=== PATIENT | male | born 1965 | race Caucasian/White ===

== ENCOUNTER → 2019-01-09 11:06 | Outpatient (CLI) | payer MEDICAID, OTHER | END | disposition home or self-care (01) | LOC: D.NM 11:06 | PROVIDERS: ATTEND Internal Medicine Gastroenterology | DX: R10.9 Unspecified abdominal pain (principal); R11.0 Nausea; R11.10 Vomiting, unspecified ==

== ENCOUNTER 2019-05-08 01:51 | Inpatient (IN) | payer MEDICAID, OTHER ==
[~2019-05-08] VITALS: Ht 175.3 cm; Wt 83.9 kg
[2019-05-08] VITALS (9 sets, daily range): BP systolic 113–147; BP diastolic 81–102; Ht 175.3 cm; Wt 83.9 kg
--- NOTE | ~2019-05-08 | HEMODYNAMI ---
PATIENT:NISHI SANDOVAL MEDICAL RECORD: [id number] : 61 LOCATION:[facility] D.2115 [facility]# [id number] ADMISSION DATE: 05/08/19 Generatedon:05/09/201912:45 Patient name: NISHI SANDOVAL Patient #: [id number] : 1965 Date of study: 05/09/2019 Page: Of Hemodynamic Procedure Report Patient Data Patient Demographics Procedure consent was obtained First Name: NISHI Gender: Male Last Name: JAIME : 1965 Middle Initial: TAMAR Age: 53 year(s) Patient #: [id number] Race: Ethnicity: or SSN: [id number] Additional ID: [id number] Contact details [address]: [address] [place] [address] State: [place] City: [place] Zip code: [address] Past Medical History Allergies Allergen Reaction Date Comments Reported Other allergy 05/09/2019 KEN NELSON Admission Admission Data Admission Date: 05/08/2019 Admission Time: 3:24 Arrival Date: 05/08/2019 Arrival Time: 3:24 Admit Source: Emergency Insurance Payor: Private department health [facility], [facility] Room #: D.2115 [facility] #: [id number] Height (in.): 68.9 BSA: 2 (m2) Height (cm.): 175 BMI: 27.43 (kg/m2) Weight (lbs.): 185.19 Weight (kg.): 84 Lab Results Lab Result Date: 05/08/2019 Lab Result Time: 0:00 Biochemistry Name Units Result Min Max BUN mg/dl 13 --(--*-)-- 7 18 Creatinine mg/dl 1.2 --(---*)-- 0.6 1.3 eGFR ml/min 67.52320 *-(----)-- 90 120 NONAFRICAN CBC Name Units Result Min Max Hemoglobin g/dl 16.7 --(---*)-- 13.5 17.5 Procedure Procedure Types Cath Procedure Diagnostic Procedure FFR/IVUS FFR Initial Sedation Charges Moderate Sedation up to 30 minutes PCI Procedure Coronary Stent Coronary Stent Initial Procedure Description Procedure Date Procedure Date: 05/09/2019 Procedure Start Time: 12:06 Procedure End Time: 12:42 Procedure Staff Name Function Godfrey Vincent MD Performing Physician Ary Kelly RT Monitor Ester Oglesby RT Scrub Chance Herman RN Nurse Marielos Loza RT Monitor Procedure Data Cath Procedure Fluoroscopy Diagnostic fluoroscopy Total fluoroscopy Time: time: 11.7 min 11.7 min Diagnostic fluoroscopy Total fluoroscopy dose: dose: 1539 mGy 1539 mGy Contrast Material Contrast Material Type Amount (ml) Isovue 300 134 Entry Location Entry Primary Successful Side Size Upsize Upsize Entry Closure Succes sful Closure Location (Fr) 1 (Fr) 2 (Fr) Remarks Device Remarks Femoral Right 6 Fr Exoseal artery Short Estimated blood loss: 10 ml Procedure Complications No complications Procedure Medications Medication Administration Route Dosage Oxygen etCO2 Nasal cannula 2 l/min Lidocaine 2% added to field 20 Heparin Flush Bag added to field 2 bags (1000units/500ml NS) 0.9% NaCl I.V. 100 ml/hr Versed I.V. 1 mg Fentanyl I.V. 50 mcg Versed I.V. 1 mg Fentanyl I.V. 50 mcg Heparin Bolus I.V. 4000 units Versed I.V. 1 mg Hemodynamics Rest BSA: 2 (m2) HGB: 16.7 (g/dl) O2 Consumption: Estimated: 231.59 (ml/min) O2 Consu mption indexed: Estimated:115.8 (ml/min/m) Heart Rate: 63 (bpm) Snapshots Pre Cath Intra NCS Post Cath Vital Signs Time Heart Resp SPO2 etCO2 NIBP (mmHg) Rhythm Pain Sedation Rate (ipm) (%) (mmHg) Status Level (bpm) 11:56:48 62 13 97 34.8 114/82(95) NSR 0 (11) 10(A) , No pain 12:00:54 63 11 97 9.1 114/78(92) NSR 0 (11) 10(A) , No pain 12:04:58 62 10 97 0 111/88(100) NSR 0 (11) 10(A) , No pain 12:09:01 61 10 96 25 115/79(99) NSR 0 (11) 9(A) , No pain 12:13:05 58 10 93 20.4 114/86(107) NSR 0 (11) 9(A) , No pain 12:17:11 65 16 94 23.5 106/78(93) NSR 0 (11) 9(A) , No pain 12:21:19 59 21 98 20.4 109/66(85) NSR 0 (11) 9(A) , No pain 12:25:24 61 20 94 28.8 108/75(88) NSR 0 (11) 9(A) , No pain 12:29:26 63 12 98 32.6 106/73(94) NSR 0 (11) 10(A) , No pain 12:33:30 62 18 97 29.5 112/74(91) NSR 0 (11) 10(A) , No pain 12:37:31 66 22 97 34.1 94/58(70) NSR 0 (11) 10(A) , No pain 12:41:41 66 10 100 36.3 140/113(137) NSR 0 (11) 10(A) , No pain Medications Time Medication Route Dose Verified Delivered Reason Notes Effectiveness by by 12:00:25 Oxygen etCO2 2 Godfrey Buffie used for Nasal l/min Carlton Herman RN procedure cannula 12:00:32 Lidocaine 2% added 20ml Godfrey Godfrey for local to vial Carlton Vincent MD anesthetic field 12:00:38 Heparin Flush added 2 Godfrey Godfrey used for Bag to bags Carlton Vincent MD procedure (1000units/500ml field NS) 12:00:47 0.9% NaCl I.V. 100 Godfrey Buffie Per physician ml/hr Carlton Herman RN 12:04:10 Versed I.V. 1 mg Godfrey Buffie for sedation Carlton Herman RN 12:04:16 Fentanyl I.V. 50 Godfrey Buffie for sedation mcg Carlton Herman RN 12:08:10 Versed I.V. 1 mg Godfrey Buffie for sedation Carlton Herman RN 12:08:13 Fentanyl I.V. 50 Godfrey Buffie for sedation mcg Carlton Herman RN 12:10:49 Heparin Bolus I.V. 4000 Godfrey Buffie for verif ied units Carlton Herman RN anticoagulation with dr vincent 12:23:41 Versed I.V. 1 mg Godfrey Fletcher for sedation Carlton Herman registered clinical dietitian Log Time Note 11:31:10 Informed consent obtained and on chart 11::37 Patient Weight : 185.19 lbs 11::37 Patient Height : 68.9 inches 11:33:11 Procedure Status PCI. 11:33:13 Time tracking: Regular hours (M-F 7:00 - 5:00) 11:33:16 Plan of Care:Hemodynamics will remain stable., Cardiac rhythm will remain stable., Comfort level will be maintained., Respiratory function will remain adequate., Patient/ family verbilizes understanding of procedure., Procedure tolerated without complication., Recovers from procedure without complications.. 11:33:21 Chance Herman RN sent for patient. Start room use. 11:33:59 Patient allergic to Other allergyZOFRAN, REGLAN 11:36:39 Risk of Mortality: <.1 11:36:42 Risk of blood transfusion: .2 11:36:45 Risk of VERO: 3.1 11:41:08 ACC Patient presents with Stable Angina CCS Anginal Class 3--Marked limitation of physical activity, angina occurs with ordinary activity.. 11:41:39 Is patient on blood thinner?Yes 11:41:44 ACC The patient was administered the following blood thiners within the last 24 hours: ACCPlavix 11:48:54 Patient received from Med II to CCL 2 Alert and oriented. Tansferred to table in Supine position. 11:49:37 Warm blankets applied, and logan hugger turned on for patient comfort. 11:49:38 Correct patient and procedure confirmed by team. 11:49:38 ECG and BP/O2 sat monitors applied to patient. 11:52:53 Pre-procedure instructions explained to patient. 11:52:54 Pre-op teaching completed and patient verbalized understanding. 11:53:07 Family in patients room. 11:53:09 Patient NPO since Midnight. 11:53:57 Patient diabetic? No. 11:53:59 Is the patient allergic to Iodine/contrast media? No. 11:54:12 Previous problem with sedation/anesthesia? Yes vomitting in past 11:54:13 Snore? Yes 11:54:15 Sleep apnea? No 11:54:16 Deviated septum? No 11:54:17 Opens mouth fully? Yes 11:54:19 Sticks out tongue? Yes 11:54:21 Airway obstruction? No ? 11:54:23 Dentures? No ? 11:54:25 Pre procedure: right dorsailis pedis pulse 2+ Normal; easily identifiable; not easily obliterated 11:54:28 Patient pain scale 0/10 ?. 11:54:44 IV patent on arrival in left antecubital with 0.9% NaCl at [facility]. 11:54:49 Lab results completed and on chart. 11:54:53 Right groin area was prepped with chlora-prep and draped in sterile fashion 11:54:54 Alarms reviewed by R. N. 11:54:54 Sharps counted by scrub and verified by R.N. 11:54:57 Use device set CATH PACK 11:54:58 ACIST Syringe (37619) opened to sterile field. 11:54:58 ACIST Hand Control (27913) opened to sterile field. 11:54:59 ACIST Manifold (88972) opened to sterile field. 11:54:59 Medline Cath Pack ([id number]) opened to sterile field. 11:54:59 Bag Decanter (2002S) opened to sterile field. 11:55:00 EMERALD Guide Wire (502-018) opened to sterile field. 11:55:15 SHEATH 6FR [place] (MXX465) opened to sterile field. 11:55:15 CHOICE PT Extra Support 182cm wire ([id number]) opened to sterile field. 11:55:16 INFLATOR Merit BasixCompak (FU7031) opened to sterile field. 11:55:38 Vital chart was started 11:55:39 Baseline sample Acquired. 11:55:42 Full Disclosure recording started 11:55:51 Rhythm: sinus rhythm 11:55:57 H&P Date Dictated: 05/09/2019 New H&P dictated by physician.. 12:00:25 Oxygen 2 l/min etCO2 Nasal cannula was administered by Chance Herman RN; used for procedure; Verbal order read back and verified. 12:00:32 Lidocaine 2% 20ml vial added to field was administered by Godfrey Vincent MD; for local anesthetic; Verbal order read back and verified. 12:00:38 Heparin Flush Bag (1000units/500ml NS) 2 bags added to field was administered by Godfrey Vincent MD; used for procedure; Verbal order read back and verified. 12:00:47 0.9% NaCl 100 ml/hr I.V. was administered by Chance Herman RN; Per physician; Verbal order read back and verified. 12:03:26 Physician arrived 12:03:27 --------ALL STOP TIME OUT------ 12:03:28 Final Timeout: patient, procedure, and site verified with staff and physician. All members of the team are in agreement. 12:03:31 Right groin site verified by team. 12:03:38 Fire Safety Assessment: A--An alcohol-based skin anteseptic being used preoperatively., C--Open oxygen or nitrous oxide is being used., D--An ESU, laser, or fiber-optic light is being used. 12:03:48 Physical assessment completed. ASA score P 2 - A patient with mild systemic disease as per Godfrey Vincent MD. 12:03:55 2) 60-89 Mildly reduced kidney function, and other findings (as for stage 1) point to kidney disease. 12:04:01 Maximum allowable contrast dose (3.7 X eGFR X 0.75)186 ml. 12:04:08 Sedation plan: IV Moderate Sedation Medication:Versed, Fentanyl 12:04:10 Versed 1 mg I.V. was administered by Chance Herman RN; for sedation; Verbal order read back and verified. 12:04:16 Fentanyl 50 mcg I.V. was administered by Chance Herman RN; for sedation; Verbal order read back and verified. 12:06:37 Procedure started. 12:06:41 Local anesthetic to right femoral artery with Lidocaine 2% by Godfrey Vincent MD.INITIAL ACCESS ONLY 12:08:06 A 6 Fr Short sheath was inserted into the Right Femoral artery 12:08:10 Versed 1 mg I.V. was administered by Chance Herman RN; for sedation; Verbal order read back and verified. 12:08:10 GUIDE 6FR HS II catheter ([id number]) opened to sterile field. 12:08:13 Fentanyl 50 mcg I.V. was administered by Chance Herman RN; for sedation; Verbal order read back and verified. 12:08:26 6 Fr HS2 guide catheter was inserted over the wire 12:09:08 RCA angiography performed. 12:10:03 CHOICE PT Extra Support J 300cm guide wire ([id number]) opened to sterile field. 12:10:18 300 CHOICE PT wire advanced. 12:10:49 Heparin Bolus 4000 units I.V. was administered by Chance Herman RN; for anticoagulation; verified with dr vincent Verbal order read back and verified. 12:11:35 Pre PCI Site: [place] PDA has 95% stenosis. 12:11:40 Wire advanced across lesion. 12:12:57 The EMERGE OTW 1.5 x 20 balloon ([id number]) was advanced and then removed because of failure to cross lesion 12:13:08 Wire removed. 12:13:24 [place] Verrata Plus pressure wire (21187F) opened to sterile field. 12:13:31 FFR/IFR wire advanced. 12:15:23 Wire advanced across lesion. 12:17:53 PLB lesion measured at 0.93 with IFR 12:18:40 Wire removed. 12:19:02 FIELDER XT J 300cm guide wire ([id number]) opened to sterile field. 12:19:15 Wire advanced across lesion. 12:22:06 Inflate balloon Inflation number: 1 A EMERGE OTW 1.5 x 20 balloon ([id number]) was prepped and advanced across the R PDA , then inflated to 7 GURU for 0:00 (min:sec) . 12:22:18 Inflation number: 2 The EMERGE OTW 1.5 x 20 balloon ([id number]) was reinflated across the R PDA , to 17 GURU for 0:00 (min:sec) . 12:22:26 Inflation number: 3 The EMERGE OTW 1.5 x 20 balloon ([id number]) was reinflated across the R PDA , to 21 GURU for 0:00 (min:sec) . 12:23:16 Wire removed. 12:23:25 WHISPER 300cm guide wire ([id number]) opened to sterile field. 12:23:41 Versed 1 mg I.V. was administered by Chance Herman RN; for sedation; Verbal order read back and verified. 12:23:42 WHISPER 300 wire advanced. 12:23:45 Wire advanced across lesion. 12:24:06 Balloon removed over the wire. 12:26:49 Inflate balloon Inflation number: 4 A EMERGE OTW 2.0 x 15 balloon ([id number]) was prepped and advanced across the R PDA , then inflated to 13 GURU for 0:10 (min:sec) . 12:26:59 Inflation number: 5 The EMERGE OTW 2.0 x 15 balloon ([id number]) was reinflated across the R PDA , to 13 GURU for 0:00 (min:sec) . 12:27:39 Inflation number: 6 The EMERGE OTW 2.0 x 15 balloon ([id number]) was reinflated across the R PDA , to 15 GURU for 0:00 (min:sec) . 12:28:14 Balloon removed over the wire. 12:30:00 Place stent Inflation Number: 7 A CAL RX 2.0 x 22 stent ([id number]) was prepped and advanced across the R PDA . The stent was deployed at 13 GURU for 0:10 (min:sec) . 12:30:34 Stent catheter was removed intact over wire. 12:30:38 Wire removed. 12:30:49 Guide catheter removed. 12:30:56 ACT drawn and resulted at 236 seconds. (normal therapeutic range 180-240 seconds). 12:31:47 EXOSEAL 6Fr (EX600) opened to sterile field. 12:32:02 Sheath removed intact; hemostasis achieved with Exoseal to the Right Femoral artery. 12:32:05 Procedure ended.(Physican Out) 12:33:54 Contrast amount:Isovue 300 134ml. 12:34:00 Maximum allowable dose exceeded? No. 12:34:13 Fluoroscopy time 11.70 minutes. 12:34:20 Flurop Dose total: 1539 12:34:20 Fluoroscopy dose: 1539 mGy 12:34:30 Dose Area Product 43189 mGy/cm. 12:34:33 Sharps counted by scrub and verified by R.N. 12:34:40 Insertion/operative site no bleeding no hematoma. 12:34:46 Post-op/insertion site Right Femoral artery dressed using a 4 x 4 and Tegaderm. 12:34:52 Post right femoral artery:stable 12:34:56 Post Procedure Pulses reassessed and unchanged 12:35:18 Post-procedure physical assessment completed. ASA score P 2 - A patient with mild systemic disease as per Godfrey Vincent MD. 12:35:23 Post procedure rhythm: unchanged. 12:35:30 Estimated blood loss: 10 ml 12:35:33 Post procedure instruction explained to patient.Patient verbalizes understanding. 12:35:37 Patient needs reinforcement of post procedure teaching. 12:38:15 Procedure type changed to Cath procedure, Diagnostic procedure, FFR/IVUS, FFR Initial, Sedation Charges, Moderate Sedation up to 30 minutes, PCI procedure, Coronary Stent, Coronary Stent Initial 12:38:54 FEMSTOP Gold ([id number]) opened to sterile field. 12:39:00 Femstop placed over the right femoral artery at 100 mmHg. Hemostasis achieved. 12:39:09 Procedure and supply charges have been captured, reviewed, submitted and are correct. 12:41:42 Procedure Complication : No complications 12:41:45 Vital chart was stopped 12:41:48 [facility] Findings: MVD- PCI performed (see procedure note) 12:41:54 Operative report dictated upon procedure completion. 12:41:54 See physician's report for complete and final results. 12:41:57 Report given to Pre/Post Procedure Room. 12:42:03 Patient transfered to Pre/Post Procedure Room with Stretcher. 12:42:07 Procedure ended. 12:42:07 Full Disclosure recording stopped 12:42:28 ACC-PCI Only Patient was given prescriptions, or instructed by Godfrey Vincent MD to start/continue the following medications upon discharge: Plavix 12:42:35 End room use (Document Last) Intervention Summary Intervention Notes Time ActionType Lesion and Equipment Used Action# Pressure Duration Attributes 12:12:57 Discard EMERGE OTW 1.5 Balloon x 20 balloon ([id number]) 12:22:06 Inflate R PDA EMERGE OTW 1.5 1 7 00:00 balloon x 20 balloon ([id number]) 12:22:18 Reinflate R PDA EMERGE OTW 1.5 2 17 00:00 balloon x 20 balloon ([id number]) 12:22:26 Reinflate R PDA EMERGE OTW 1.5 3 21 00:00 balloon x 20 balloon ([id number]) 12:26:49 Inflate R PDA EMERGE OTW 2.0 4 13 00:10 balloon x 15 balloon ([id number]) 12:26:59 Reinflate R PDA EMERGE OTW 2.0 5 13 00:00 balloon x 15 balloon ([id number]) 12:27:39 Reinflate R PDA EMERGE OTW 2.0 6 15 00:00 balloon x 15 balloon ([id number]) 12:30:00 Place stent R PDA CAL RX 2.0 x 7 13 00:10 22 stent ([id number]) Device Usage Item Name Manufacture Quantity Catalog Number [facility] Minimal Lot# / Charge Number Stock Stock Serial# Code ACIST Syringe Acist 1 89348 935604 871083 751093 20 (71822) Medical Systems Inc ACIST Hand Acist 1 66119 816245 108830 776694 5 Control Medical (18784) Systems Inc ACIST Manifold Acist 1 13426 630486 725040 613227 5 (19086) Medical Systems Inc Medline Cath Medline 1 [id number] 150636 55969 934852 5 Pack ([id number]) Bag Decanter Microtek 1 235178 50579 521004 5 () Medical Inc. EMERALD Guide Cardinal 1 502-455 003303 673983 027342 5 Wire (502-455) Health SHEATH 6FR Terumo 1 YGH478 456057 020525 840310 40 [place] (FTI042) CHOICE PT [place] 1 [id number] 278407 674431 809612 5 Extra Support Scientific 182cm wire (4296961I0) INFLATOR Merit Merit 1 WD3865 686612 685296 091551 15 CSA Medical (PV9705) GUIDE 6FR HS Medtronic 1 [id number] 287766 68766 577797 1 II catheter (HW6KBTE) CHOICE PT [place] 1 [id number] 130178 763734 403170 5 Extra Support Scientific J 300cm guide wire ([id number]) EMERGE OTW 1.5 [place] 1 [id number] 101474 090514 529489 5 [id number] x 20 balloon Scientific ([id number]) [place] 1 59976U 162120 189841452 856176 5 Verrata Plus pressure wire (16421J) FIELDER XT J Carmen 1 [id number] 881578 174061 585791 5 300cm guide Vascular wire ([id number]) WHISPER 300cm Carmen 1 [id number] 892034 781969 810325 5 guide wire Vascular (8627384OU) EMERGE OTW 2.0 [place] 1 [id number] 204011 488797 625299 5 [id number] x 15 balloon Scientific ([id number]) CAL RX 2.0 x Medtronic 1 [id number] 863914 4832474 575291 5 [id number] 22 stent ([id number]) EXOSEAL 6Fr Cardinal 1 EX600 147380 380419 456369 10 (EX600) Health FEMSTOP Gold St Joey 1 D92209 617520 108672 687351 5 ([id number]) Signature Audit Hydro Stage Time Signature Unsigned Intra-Procedure 05/09/2019 Marielos 12:43:41 PM Dago TORRES(R) (CV) Intra-Procedure 05/09/2019 Chance Herman RN 12:44:58 PM Intra-Procedure 05/09/2019 Godfrey Vincent 12:45:28 PM Signatures Performing Physician : Signature : Godfrey Vincent MD Date : Time : Monitor : Ary Kelly Signature : RT Date : Time : Nurse : Chance Herman RN Signature : Date : Time : Monitor : Marielos Signature : Dago RT Date : Time : [id number] [place] [address]
--- NOTE | ~2019-05-08 | HEMODYNAMI ---
PATIENT:NISHI SANDOVAL MEDICAL RECORD: [id number] : 61 [facility]# [id number] ADMISSION DATE: 05/08/19 Generatedon:05/08/201913:00 Patient name: NISHI SANDOVAL Patient #: [id number] : 1965 Date of study: 05/08/2019 Page: Of Hemodynamic Procedure Report Patient Data Patient Demographics Procedure consent was obtained First Name: NISHI Gender: Male Last Name: JAIME : 1965 Middle Initial: TAMAR Age: 53 year(s) Patient #: [id number] Race: SSN: [id number] Additional ID: [id number] Contact details Address: [address] [place] [address] State: [place] City: [place] Zip code: [address] Admission Admission Data Admission Date: 05/08/2019 Admission Time: 3:24 Arrival Date: 05/08/2019 Arrival Time: 3:24 Admit Source: Emergency Insurance Payor: Private department health insurance, Room #: D.2115 [facility] #: [id number] Height (in.): 68.9 BSA: 2 (m2) Height (cm.): 175 BMI: 27.43 (kg/m2) Weight (lbs.): 185.19 Weight (kg.): 84 Lab Results Lab Result Date: 05/08/2019 Lab Result Time: 0:00 Biochemistry Name Units Result Min Max BUN mg/dl 13 --(--*-)-- 7 18 Creatinine mg/dl 1.2 --(---*)-- 0.6 1.3 eGFR ml/min 67.60424 *-(----)-- 90 120 NONAFRICAN CBC Name Units Result Min Max Hemoglobin g/dl 16.7 --(---*)-- 13.5 17.5 Procedure Procedure Types Cath Procedure Diagnostic Procedure LHC LHC w/Coronaries Sedation Charges Moderate Sedation up to 30 minutes PCI Procedure Coronary Stent Coronary Stent Initial x2 Procedure Description Procedure Date Procedure Date: 05/08/2019 Procedure Start Time: 12:30 Procedure End Time: 12:55 Procedure Staff Name Function Godfrey Vincent MD Performing Physician Lucy Dominguez RT Monitor Magnolia Arana RT Scrub Chance Herman RN Nurse Indication Angina Procedure Data Cath Procedure Fluoroscopy Diagnostic fluoroscopy Total fluoroscopy Time: time: 10.2 min 10.2 min Diagnostic fluoroscopy Total fluoroscopy dose: dose: 2123 mGy 2123 mGy Contrast Material Contrast Material Type Amount (ml) Isovue 300 186 Entry Location Entry Primary Successful Side Size Upsize Upsize Entry Closure Castaneda ccessful Closure Location (Fr) 1 (Fr) 2 (Fr) Remarks Device Remarks Radial Right 6 Fr Mechanical artery Short Compression Estimated blood loss: 5 ml Diagnostic catheters Device Type Used For End Catheter Placement DIAGNOSTIC [place] 110cm 5 Multi-vessel Fr catheter ([id number]) Angiography DIAGNOSTIC AR2 MOD 5 Fr Right Coronary catheter ([id number]) Angiography Procedure Complications No complications Procedure Medications Medication Administration Route Dosage Oxygen etCO2 Nasal cannula 2 l/min Lidocaine 2% added to field 20 Heparin Flush Bag added to field 2 bags (1000units/500ml NS) 0.9% NaCl I.V. 100 ml/hr Radial Cocktail I.A. 1 syringe (Verapamil 2mg/Nitro 400mcg/Heparin 1500units) Versed I.V. 1 mg Fentanyl I.V. 50 mcg Versed I.V. 1 mg Fentanyl I.V. 50 mcg Heparin Bolus I.V. 4000 units Versed I.V. 1 mg Versed I.V. 1 mg Hemodynamics Rest BSA: 2 (m2) HGB: 16.7 (g/dl) O2 Consumption: Estimated: 239.35 (ml/min) O2 Consu mption indexed: Estimated:119.68 (ml/min/m) Heart Rate: 73 (bpm) Pressure Samples Time Site Value (mmHg) Purpose Heart Use Rate(bpm) 12:32 LV 44/44,41 Snapshot 89 Snapshots Pre Cath Intra NCS Post Cath Vital Signs Time Heart Resp SPO2 etCO2 NIBP (mmHg) Rhythm Pain Sedation Rate (ipm) (%) (mmHg) Status Level (bpm) 12:09:45 68 11 93 0 133/98(113) NSR 0 (11) 10(A) , No pain 12:13:44 67 10 98 29.9 141/101(122) NSR 0 (11) 10(A) , No pain 12:17:46 64 12 93 0 134/102(123) NSR 0 (11) 10(A) , No pain 12:19:55 67 17 96 0 145/98(132) NSR 0 (11) 10(A) , No pain 12:23:57 77 15 93 0 149/115(129) NSR 0 (11) 10(A) , No pain 12:28:00 79 18 95 0 144/92(133) NSR 0 (11) 10(A) , No pain 12:32:02 63 17 93 0 138/95(118) NSR 0 (11) 9(A) , No pain 12:36:06 67 18 94 0 132/89(121) NSR 0 (11) 9(A) , No pain 12:40:10 67 14 96 0 134/83(113) NSR 0 (11) 9(A) , No pain 12:44:15 71 14 96 0 134/75(111) NSR 0 (11) 9(A) , No pain 12:48:21 67 17 96 0 116/76(95) NSR 0 (11) 9(A) , No pain 12:52:21 67 28 97 0 124/76(107) NSR 0 (11) 10(A) , No pain Medications Time Medication Route Dose Verified Delivered Reason Not es Effectiveness by by 12:19:27 Oxygen etCO2 2 l/min Godfrey Fletcher used for Nasal Carlton Herman RN procedure cannula 12:19:34 Lidocaine 2% added 20ml Godfrey Donahue for local to vial Carlton Vincent MD anesthetic field 12:19:40 Heparin Flush added 2 bags Godfrey Donahue used for Bag to Carlton Vincent MD procedure (1000units/500ml field NS) 12:19:51 0.9% NaCl I.V. 100 Godfrey Fletcher Per physician ml/hr Carlton Herman RN 12:28:20 Versed I.V. 1 mg Godfrey Fletcher for sedation Carlton Herman RN 12:28:27 Fentanyl I.V. 50 mcg Godfrey Fletcher for sedation Carlton Herman RN 12:32:15 Versed I.V. 1 mg Godfrey Fletcher for sedation Carlton Herman RN 12:32:19 Fentanyl I.V. 50 mcg Godfrey Fletcher for sedation Carlton Herman RN 12:32:21 Radial Cocktail I.A. 1 Godfrey Donahue for (Verapamil syringe Carlton Vincent MD vasodilation 2mg/Nitro 400mcg/Heparin 1500units) 12:36:04 Versed I.V. 1 mg Godfrey Fletcher for sedation Carlton Herman RN 12:39:58 Heparin Bolus I.V. 4000 Godfrey Fletcher for mary lou ified units Carlton Herman RN anticoagulation with dr vincent 12:48:21 Versed I.V. 1 mg Godfrey Fletcher for sedation Carlton Herman RN Procedure Log Time Note 11:40:31 Diagnostic Cath Status : Urgent 11:40:53 Indication : Angina 11:46:40 Informed consent obtained and on chart 11:47:12 Admit Source: Emergency department 11:47:19 Arrival Date: 05/08/2019 3:24:00 AM 11:47:27 Insurance Payor : Variable, [facility] 11:47:35 Patient Weight : 185.19 lbs 11:47:38 Patient Height : 68.9 inches 11:48:07 Lab Result : eGFR NONAFRICAN 67.22071 ml/min 11:48:07 Lab Result : Creatinine 1.2 mg/dl 11:48:07 Lab Result : BUN 13 mg/dl 11:48:07 Lab Result : Hemoglobin 16.7 g/dl 11:48:20 2) 60-89 Mildly reduced kidney function, and other findings (as for stage 1) point to kidney disease. 11:49:01 ACC Patient presents with Unstable Angina CCS Anginal Class 4--Inability to carry out any physical activity w/o angina. Angina may occur at rest. 11:49:04 Procedure Status Urgent Heart Cath (IP). 11:49:08 Chance Herman RN sent for patient. Start room use. 11:49:08 Time tracking: Regular hours (M-F 7:00 - 5:00) 11:49:12 Plan of Care:Hemodynamics will remain stable., Cardiac rhythm will remain stable., Comfort level will be maintained., Respiratory function will remain adequate., Patient/ family verbilizes understanding of procedure., Procedure tolerated without complication., Recovers from procedure without complications.. 11:56:58 Patient received from Med II to CCL 2 Alert and oriented. Tansferred to table in Supine position. 11:56:59 Warm blankets applied, and logan hugger turned on for patient comfort. 11:56:59 Correct patient and procedure confirmed by team. 11:57:00 ECG and BP/O2 sat monitors applied to patient. 12:08:42 Vital chart was started 12:08:43 Baseline sample Acquired. 12:08:47 Rhythm: sinus rhythm 12:08:50 Full Disclosure recording started 12:08:54 H&P Date Dictated: 05/08/2019 ER History on chart., New H&P dictated by physician.. 12:08:55 Pre-procedure instructions explained to patient. 12:08:56 Pre-op teaching completed and patient verbalized understanding. 12:08:57 Family unavailable. 12:08:59 Patient NPO since Midnight. 12:09:12 Is the patient allergic to Iodine/contrast media? No. 12:09:13 Was the patient premedicated? Yes 12:09:27 Is patient on blood thinner?Yes 12:09:30 ACC The patient was administered the following blood thiners within the last 24 hours: ACCPlavix 12:09:32 Patient diabetic? No. 12:09:35 Previous problem with sedation/anesthesia? Yes VOMITING 12:09:37 Snore? Yes 12:09:38 Sleep apnea? No 12:09:39 Deviated septum? No 12:09:40 Opens mouth fully? Yes 12:09:41 Sticks out tongue? Yes 12:09:44 Airway obstruction? No ? 12:09:46 Dentures? No ? 12:10:21 Pre procedure: right dorsailis pedis pulse 2+ Normal; easily identifiable; not easily obliterated 12:10:23 Pre procedure: left dorsailis pedis pulse 2+ Normal; easily identifiable; not easily obliterated 12:10:25 Patient pain scale 0/10 ?. 12:10:28 Modified Domenico's test Radial < 7 seconds 12:10:43 IV patent on arrival in left antecubital with 0.9% NaCl at O. 12:10:48 Lab results completed and on chart. 12:10:52 Stress Test: no; N/A ? 12:10:56 Risk of Mortality: 7.6 12:10:59 Risk of blood transfusion: 1.1 12:11:02 Risk of VERO: 9.4 12:11:07 Right Radial & Right Groin area was prepped with chlora-prep and draped in sterile fashion 12:11:08 Alarms reviewed by R. N. 12:11:08 Sharps counted by scrub and verified by R.N. 12:11:09 Physician arrived 12:11:10 Final Timeout: patient, procedure, and site verified with staff and physician. All members of the team are in agreement. 12:11:12 Right Radial & Right Groin site verified by team. 12:11:15 Fire Safety Assessment: A--An alcohol-based skin anteseptic being used preoperatively., C--Open oxygen or nitrous oxide is being used., D--An ESU, laser, or fiber-optic light is being used. 12:11:19 Physical assessment completed. ASA score P 2 - A patient with mild systemic disease as per Godfrey Vincent MD. 12:11:28 Maximum allowable contrast dose (3.7 X eGFR X 0.75)185 ml. 12:11:31 Sedation plan: IV Moderate Sedation Medication:Versed, Fentanyl 12:11:34 Use device set Radial Dx or PCI 12:11:35 ACIST Syringe (87532) opened to sterile field. 12:11:36 Medline Cath Pack ([id number]) opened to sterile field. 12:11:36 Bag Decanter (2002) opened to sterile field. 12:11:36 ACIST Hand Control (51866) opened to sterile field. 12:11:37 ACIST Manifold (89756) opened to sterile field. 12:11:37 Tegaderm 4 x 4 (1626W) opened to sterile field. 12:11:37 MBrace Wrist Support (420007689) opened to sterile field. 12:11:40 SHEATH 6FR RAIN (0285022) opened to sterile field. 12:11:41 EMERALD Guide Wire (933-169) opened to sterile field. 12:16:33 Zero performed for pressure channel P1 12:19:27 Oxygen 2 l/min etCO2 Nasal cannula was administered by Chance Herman RN; used for procedure; Verbal order read back and verified. 12:19:34 Lidocaine 2% 20ml vial added to field was administered by Godfrey Vincent MD; for local anesthetic; Verbal order read back and verified. 12:19:40 Heparin Flush Bag (1000units/500ml NS) 2 bags added to field was administered by Godfrey Vincent MD; used for procedure; Verbal order read back and verified. 12:19:51 0.9% NaCl 100 ml/hr I.V. was administered by Chance Herman RN; Per physician; Verbal order read back and verified. 12::36 --------ALL STOP TIME OUT------ 12:28:20 Versed 1 mg I.V. was administered by Chance Herman RN; for sedation; Verbal order read back and verified. 12::27 Fentanyl 50 mcg I.V. was administered by Chance Herman RN; for sedation; Verbal order read back and verified. 12:30:25 Procedure started. 12:30:30 Local anesthetic to right radial artery with Lidocaine 2% by Godfrey Vincent MD.INITIAL ACCESS ONLY 12:30:38 A 6 Fr Short sheath was inserted into the Right Radial artery 12:31:12 A DIAGNOSTIC [place] 110cm 5 Fr catheter (039391) was advanced over the wire and used for Multi-vessel Angiography. 12:32:15 Versed 1 mg I.V. was administered by Chance Herman RN; for sedation; Verbal order read back and verified. 12:32:19 Fentanyl 50 mcg I.V. was administered by Chance Herman RN; for sedation; Verbal order read back and verified. 12:32:21 Radial Cocktail (Verapamil 2mg/Nitro 400mcg/Heparin 1500units) 1 syringe I.A. was administered by Godfrey Vincent MD; for vasodilation; Verbal order read back and verified. 12:32:47 LV hemodynamics recorded. 12:32:48 LV gram done using VAZQUEZ 12:32:50 Injector settings: Ml/sec: 5, Volume: 15, 12:32:56 EF : 40 % 12:33:14 LCA angiography performed. 12:33:16 Injector settings: Ml/sec: 3, Volume: 6, 12:34:49 Catheter removed. 12:35:37 A DIAGNOSTIC AR2 MOD 5 Fr catheter ([id number]) was advanced over the wire and used for Right Coronary Angiography. 12:36:04 Versed 1 mg I.V. was administered by Chance Herman RN; for sedation; Verbal order read back and verified. 12:36:06 CHOICE PT Extra Support 182cm wire ([id number]) opened to sterile field. 12:36:07 INFLATOR Merit BashannahCompak (LZ6136) opened to sterile field. 12:36:13 RCA angiography performed. 12:36:16 Injector settings: Ml/sec: 3, Volume: 6, 12:37:45 GUIDE 6FR XBLAD 3.5 catheter ([id number]) opened to sterile field. 12:37:53 ACCDominant side:Right 12:37:53 Catheter removed. 12:37:54 Proceeding to intervention. 12:38:53 6 Fr XBLAD 3.5 guide catheter was inserted over the wire 12:39:00 ACC Pre-intervention SWATHI Flow is 2. 12:39:10 Pre PCI Site: [place] mLAD has 99% stenosis. 12:39:23 CHOICEPT wire advanced. 12:39:58 Heparin Bolus 4000 units I.V. was administered by Chance Herman RN; for anticoagulation; verified with dr vincent Verbal order read back and verified. 12:43:18 Place stent Inflation Number: 1 A CAL RX 2.5 x 18 stent ([id number]) was prepped and advanced across the Prox CX 99. The stent was deployed at 19 GURU for 0:10 (min:sec) 0. 12:43:53 ACC Post-intervention SWATHI Flow is 3. 12:44:00 Post PCI Site: [place] pCirc has 0% stenosis. 12:45:17 CHOICE PT Extra Support 182cm wire ([id number]) opened to sterile field. 12:45:50 Wire removed. 12:47:01 NEW CHOICE PT WIRE ADVANCED DOWN LAD 12:47:05 Wire advanced across lesion. 12:48:07 ACC Pre-intervention SWATHI Flow is 2. 12:48:14 Pre PCI Site: [place] mLAD has 99% stenosis. 12:48:18 Place stent Inflation Number: 1 A CAL RX 3.5 x 18 stent ([id number]) was prepped and advanced across the Mid LAD 99. The stent was deployed at 14 GURU for 0:00 (min:sec) 0. 12:48:21 Versed 1 mg I.V. was administered by Chance Herman RN; for sedation; Verbal order read back and verified. 12:48:38 Inflation number: 2 The stent balloon was then re-inflated across the Mid LAD 0 to 7 GURU for 0:10 (min:sec) . 12:48:55 Post PCI Site: [place] mLAD has 0% stenosis. 12:49:15 ACC Post-intervention SWATHI Flow is 3. 12:49:26 Stent catheter was removed intact over wire. 12:49:27 ACT drawn and resulted at 257 seconds. (normal therapeutic range 180-240 seconds). 12:49:31 Wire removed. 12:49:32 Guide catheter removed. 12:50:17 GUIDE 6FR HS II catheter ([id number]) opened to sterile field. 12:50:26 6 Fr HS 2 guide catheter was inserted over the wire 12:52:23 Guide Catheter removed. unable to cannulate vessel. 12:52:33 ZEPHYR REGULAR TR BAND (291890) opened to sterile field. 12:53:33 Sheath removed intact; hemostasis achieved with Mechanical Compression to the Right Radial artery. 12:53:35 Procedure ended.(Physican Out) 12:53:46 Fluoroscopy time 10.20 minutes. 12:53:52 Flurop Dose total: 2123 12:53:52 Fluoroscopy dose: 2123 mGy 12:53:59 Dose Area Product 229357 mGy/cm. 12:54:03 Contrast amount:Isovue 300 186ml. 12:54:09 Maximum allowable dose exceeded? Yes. 12:54:10 Sharps counted by scrub and verified by R.N. 12:54:14 Mcclure band inflated with 8cc of air. 12:54:17 Insertion/operative site no bleeding no hematoma. 12:54:21 Post right radial artery:stable 12:54:23 Post Procedure Pulses reassessed and unchanged 12:54:26 Post procedure rhythm: unchanged. 12:54:29 Estimated blood loss: 5 ml 12:54:30 Post procedure instruction explained to patient.Patient verbalizes understanding. 12:54:30 Patient needs reinforcement of post procedure teaching. 12:54:45 Procedure type changed to Cath procedure, Diagnostic procedure, LHC, [facility] w/Coronaries, Sedation Charges, Moderate Sedation up to 30 minutes, PCI procedure, Coronary Stent, Coronary Stent Initial x2 12:54:46 Procedure and supply charges have been captured, reviewed, submitted and are correct. 12:54:46 Procedure and supply charges have been captured, reviewed, submitted and are correct. 12:54:51 Procedure Complication : No complications 12:54:53 Vital chart was stopped 12:54:55 [facility] Findings: MVD- PCI performed (see procedure note) 12:54:57 Operative report dictated upon procedure completion. 12:55:00 See physician's report for complete and final results. 12:55:06 Report given to [facility] II. 12:55:09 Patient transfered to [facility] with Stretcher. 12:55:11 Procedure ended. 12:55:11 Full Disclosure recording stopped 12:55:19 ACC-PCI Only Patient was given prescriptions, or instructed by Godfrey Vincent MD to start/continue the following medications upon discharge: Plavix 12:55:21 End room use (Document Last) Intervention Summary Intervention Notes Time ActionType Lesion and Equipment Used Action# Pressure Duration Attributes 12:43:18 Place stent Prox CX CAL RX 2.5 x 1 19 00:10 18 stent ([id number]) 12:48:18 Place stent Mid LAD CAL RX 3.5 x 1 14 00:00 18 stent ([id number]) 12:48:38 Reinflate Mid LAD CAL RX 3.5 x 2 7 00:10 stent 18 stent balloon ([id number]) Device Usage Item Name Manufacture Quantity Catalog Number Hospital Part Current M inimal Lot# / Charge Number Stock Stock Serial# Code ACIST Syringe Acist 1 82397 664952 004272 678051 2 0 (94425) Medical Systems Inc Medline Cath Medline 1 [id number] 064120 50807 854810 5 Pack ([id number]) Bag Decanter Microtek 1 2001S 640393 01502 978987 5 () Medical Inc. ACIST Hand Acist 1 35874 110139 737096 036725 5 Control Medical (06435) Systems Inc ACIST Manifold Acist 1 31071 677486 773883 923755 5 (93849) Medical Systems Inc Tegaderm 4 x 4 3M 1 1626W 727280 892909 377296 5 (1626W) MBrace Wrist Advanced 1 140-0250-00 488284 47420 120756 5 Support Vascular (255662239) Dynamics SHEATH 6FR Cardinal 1 4809537 207632 3824547 435462 5 RAIN (7601849) Health EMERALD Guide Cardinal 1 502-455 265041 015740 693228 5 Wire (502-455) Health DIAGNOSTIC Terumo 1 40-5013 445990 364269 224141 5 [place] 110cm 5 Fr catheter (481088) DIAGNOSTIC AR2 Cardinal 1 362789N 632838 459250 886525 2 0 MOD 5 Fr Health catheter (897019H) CHOICE PT [place] 2 [id number] 880942 661822 526170 5 Extra Support Scientific 182cm wire (6970877D2) INFLATOR Merit Merit 1 HN0216 083129 511434 236079 1 5 PayActiv (KL2140) GUIDE 6FR Cardinal 1 01196098 904539 641787 844720 1 0 XBLAD 3.5 Health catheter (33683151) CAL RX 2.5 x Medtronic 1 [id number] 808210 3254285 253982 5 [id number] 18 stent ([id number]) CAL RX 3.5 x Medtronic 1 [id number] 168980 9307423 048519 5 [id number] 18 stent ([id number]) GUIDE 6FR HS Medtronic 1 [id number] 070839 39462 579761 1 II catheter (SZ1LEOB) ZEPHYR REGULAR Cardinal 1 006387 122455 3621543 352267 5 [facility] [employer] (252902) Signature Audit Flanagan Stage Time Signature Unsigned Intra-Procedure 05/08/2019 Lucy Dominguez 12:59:03 PM RT(R) Intra-Procedure 05/08/2019 Chance Herman RN 1:00:11 PM Intra-Procedure 05/08/2019 Godfrey Vincent 1:00:53 PM Signatures Performing Physician : Signature : Godfrey Vincent MD Date : Time : Monitor : Lucy Alberto RT Signature : Date : Time : Nurse : Jadeie Herman RN Signature : Date : Time : [address] [place] [address]
[2019-05-08] MEDS ORDERED: BAYER CHEWABLE81 MG (01:58)
--- NOTE | 2019-05-08 02:08 | NUR ---
CHEST PAIN RATED 7/10. FIRST NITRO ADMINISTERED.
[2019-05-08 02:17] LABS: BASOPHILS 0.4 % (0-2); EOSINOPHILS 1.4 % (0-7); HEMATOCRIT 47.9 % (42.0-54.0); HEMOGLOBIN 16.7 g/dL (13.5-17.5); IMMATURE GRANULOCYTES 0.3 % (0-5); LYMPHOCYTES 22.2 % (15-50); MCH 31.1 pg (26.0-34.0); MCHC 34.9 g/dL (31.0-37.0); MCV 89.2 fL (80.0-100.0); MEAN PLATELET VOLUME 11.5 fL (7.4-10.4); NEUTROPHILS 70.7 % (40-80); PLATELET COUNT 308 10x3/uL (130-400); RBC 5.37 10x6/uL (4.20-6.10); RDW 13.9 % (11.5-14.5); WBC 13.6 10x3/uL (4.8-10.8)
--- NOTE | 2019-05-08 02:18 | NUR ---
CHEST PAIN RATED 5/10. SECOND NITRO GIVEN.
[2019-05-08 02:22] LABS: APTT 20.5 SECONDS (22.8-39.4); INR 0.96 (0.85-1.17); PROTIME 12.3 SECONDS (11.6-15.0)
--- NOTE | 2019-05-08 02:27 | NUR ---
CHEST PAIN RATED 4/10. THIRD NITRO GIVEN. EDP AWARE.
[2019-05-08 02:40] LABS: CALC OSMOLALITY 271 mosm/kg (275-300); CARBON DIOXIDE 25.9 mmol/L (21.0-32.0); CHLORIDE - SERUM 103 mmol/L (98-107); CREATININE - SERUM 1.2 mg/dL (0.6-1.3); GLUCOSE 101 mg/dL (74-106); POTASSIUM - SERUM 4.5 mmol/L (3.5-5.1); SODIUM 136 mmol/L (136-145); UREA NITROGEN 13 mg/dL (7-18); eGFR NON AFRICAN AMERICAN 67 mL/min (90-120)
[2019-05-08 02:51] LABS: UDS - AMPHET NEGATIVE QUAL (NEGATIVE); UDS - BARB POSITIVE QUAL (NEGATIVE); UDS - BENZO NEGATIVE QUAL (NEGATIVE); UDS - COCAINE NEGATIVE QUAL (NEGATIVE); UDS - OPIATE NEGATIVE QUAL (NEGATIVE); UDS - PCP NEGATIVE QUAL (NEGATIVE); UDS - THC NEGATIVE QUAL (NEGATIVE)
[2019-05-08 03:01] LABS: ALBUMIN 3.9 g/dL (3.4-5.0); ALKALINE PHOSPHATASE 102 U/L (46-116); ALT (SGPT) 79 U/L (10-68); BILIRUBIN - TOTAL 0.26 mg/dL (0.2-1.3); CREATINE KINASE 594 UL (21-232); MAGNESIUM - SERUM 2.1 mg/dL (1.8-2.4); PROTEIN - SERUM 7.9 g/dL (6.4-8.2)
--- NOTE | 2019-05-08 04:00 | NUR ---
RECIEVED REPORT FROM [facility], PT ARRIVED ON WHEELCHAIR. INITIAL ASSESSMENT COMP. VSS, AAOX4, NO S/S OF DISTRESS. PT COMPLAIN OF PAIN IN NECK, SHOULDER AND BACK OF HEAD. ALTHOUGH DENIES ANY CHEST PAIN AT THIS TIME. PT PLACED ON TELEMETRY, 78 AND NORMAL SINUS. PT IS A GOOD HX. PT NPO AT THIS TIME. WILL CPOC. CL WITHIN REACH, BED IN LOW, SR UP X2.
--- NOTE | 2019-05-08 04:53 | NUR ---
PT C/O PAIN IN NECK, SHOULDER, AND BACK OF HEAD. STATES ITS A 12/17. MORPHINE PRN GIVEN AT THIS TIME. WILL CTM.
--- NOTE | 2019-05-08 09:21 | NUR ---
AM MEDS GIVEN WITH A SIP OF WATER. ALSO GAVE 4MG OF MORPHINE FOR PAIN LEVEL OF 8/10. SAFETY TECHNICIAN AT BEDSIDE TO GET VITAL SIGNS AND GAVE PT A CHLORHEXISINE BATH. CONSENTS SIGNED BY PT AND PLACED ON CHART. NAD NOTED, CALL LIGHT IN REACH, WILL CONITNUE TO MONITOR.
--- NOTE | 2019-05-08 09:45 | HP ---
PATIENT: NISHI HERNANDEZ MEDICAL RECORD: [id number] ACCOUNT: [id number] LOCATION:D. D.2115 : 61 ADMISSION DATE: 05/08/19 PCP: DOCTOR HEIDY HISTORY AND PHYSICAL EXAMINATION DIAGNOSES: 1. Non-Q-wave myocardial infarction. 2. Coronary artery disease. 3. Hypertension. 4. Hyperlipidemia. HISTORY OF PRESENT ILLNESS: Mr. Hernandez has no cardiac history, no significant cardiac risk factors. He has had 2 months of on and off chest pain, yesterday it got extremely worse. His troponin is 10. He continues to have chest pain this morning. PHYSICAL EXAMINATION: CONSTITUTIONAL/GENERAL APPEARANCE: Well nourished, well developed, appears stated age. EYES: Lids and conjunctivae noninjected. No discharge. No pallor. ENT: Lips within normal limit. No cyanosis. No pallor. NECK: Carotid arteries, bilateral normal upstroke. No bruits. No thrills. No jugular venous pressure or distention. CERVICAL LYMPH NODES: Nontender. Nonenlarged. THYROID: Not enlarged. No nodules. CARDIOVASCULAR: Precordial exam, nondisplaced. No heaves or pericardial thrills. Rate and rhythm, regular. Heart sounds, normal S1, normal S2. No S3, no gallop, no rub. Systolic murmur, not heard. Diastolic murmur, not heard. RESPIRATORY: Respiratory effort, unlabored. Normal curvature. No thoracic deformity. No chest wall tenderness. Percussion, resonant. Auscultation, clear. No wheezes, no rales, no rhonchi. ABDOMEN: Soft, nondistended, nontender. No abdominal pain, no vomiting and normal appetite. MUSCULOSKELETAL: No joint tenderness, normal gait, normal tone. SKIN: Warm and dry. OVERALL IMPRESSION: Non-Q-wave myocardial infarction and continued chest pain today. At this time, we will start beta blockade as well as MARYANA inhibitor, aspirin, Plavix, proceed with coronary angiography. Further care depends upon findings of the angiography. TRANSINT:[id number] Voice Confirmation ID: [id number] DOCUMENT ID: [id number] MATTHIEU FRANCO MD at 0945 CC: [id number] DICTATION DATE: 05/08/19832 BUSINESS PROGRAMMER: 05/08/19 0940 ADM IN [facility] [address] [id number]
--- NOTE | 2019-05-08 10:59 | NUR ---
PRE-OP MEDS GIVEN AT THIS TIME.
--- NOTE | 2019-05-08 11:56 | NUR ---
PT TO IV RN.
--- NOTE | 2019-05-08 13:19 | NUR ---
RECEIVED PT BACK TO ROOM 2114. PT STILL DROWSY BUT EASILY AROUSES TO VOICE. VITAL SIGNS STABLE,PLACED ON PT ON FREQUENT VITAL SIGNS. ZEPHYR BAND TO RT RADIAL WITH SMALL AMOUNT OF BLOOD. NO SIGNS OF BLEEDING OR HEMATOMA NOTED. WILL ORDER LUNCH TRAY AND CONTINUE TO MONITOR.
--- NOTE | 2019-05-08 14:04 | NUR ---
NO CHANGES TO RT WRIST, FROM PREVIOUS ASSESSMENT. PT DENIES ANY NEEDS AT THIS TIME, CALL LIGHT IN REACH, NAD NOTED, WILL CONTINUE TO MONITOR.
[2019-05-08] MEDS ORDERED: VITAMIN B-121000 MCG PO (15:20)
[2019-05-08] MEDS ORDERED: CYCLOBENZAPRINE10 MG PO (15:21)
[2019-05-08] MEDS ORDERED: MARINOL10 MG PO (15:23)
[2019-05-08] MEDS ORDERED: OMEPRAZOLE20 M1 PO (15:24)
[2019-05-08] MEDS ORDERED: PHENERGAN25 MG RC (15:25)
[2019-05-08] MEDS ORDERED: PHENERGAN25 M1 PO (15:26)
[2019-05-08] MEDS ORDERED: RANITIDINE HCL150 M1 PO (15:27)
[2019-05-08] MEDS ORDERED: HYDROCODON-ACE1 EAC7 PO (15:33)
--- NOTE | 2019-05-08 17:35 | NUR ---
ZEPHYR BAND COMPLETELY REMOVED, NO SIGNS OF BLEEDING OR HEMATOMA NOTED. BANDAID APPLIED TO SITE.
--- NOTE | 2019-05-08 19:00 | NUR ---
RECEIVED BEDSIDE REPORT. PATIENT IS ALERT AND ORIENTED, RESTING COMFORTABLY IN BED. RESPIRATIONS ARE EVEN AND UNLABORED. NO S/S OF DISTRESS. NO C/O PAIN. NEEDS MET. CALL LIGHT WITHIN REACH. WILL CPOC.
[2019-05-09] VITALS: BP 127/87
[2019-05-09 04:00] VITALS: BP 116/80
[2019-05-09 09:18] VITALS: BP 116/90
--- NOTE | 2019-05-09 11:55 | NUR ---
PRE-OPS GIVEN. TO PRODUCTION BROACHING MACHINE OPERATOR BY BED. WILL CONT. PLAN OF CARE.
[2019-05-09] MEDS ORDERED: PLAVIX75 MG PO (13:06)
[2019-05-09] MEDS ORDERED: TOPROL XL50 MG PO (13:06)
[2019-05-09] MEDS ORDERED: PRAVACHOL20 MG PO (13:06)
[2019-05-09] MEDS ORDERED: BAYER CHEWABLE81 MG PO ×2 (13:12→13:13)
--- NOTE | 2019-05-09 13:26 | NUR ---
1250 RECEIVED PT FROM COMPUTER METEOROLOGIST. PT IS ALERT, DENIES ANY C/O CHEST PAIN OR NAUSEA. REQUESTS PO FLUIDS AND FOOD. NSR, RATE IS 67, BP IS 108/77. RESP WITH EASE ON O2 AT 2LPM VIA NC. PT HAS FEMSTOP INTACT TO RIGHT GROIN WHICH WAS PLACED IN COMPUTER METEOROLOGIST DUE TO PT WITH FREQUENT COUGH, NO BLEEDING OR HEMATOMA NOTED AT SITE. PEDAL PULSES PALPABLE. HOB IS FLAT, INTSTRUCED PT TO KEEP HEAD FLAT TO PILLOW AND RIGHT LEG STRAIGHT AND PT VERBALIZES UNDERSTANDING. 1300 PO FLUIDS AND SANDWICH SERVED. PT DENIES ANY C/O OR NEEDS. FEMSTOP INTACT WITH NO BLEEDING NOTED AT SITE, PULSES 2+. 1325 PT TANK SANDWICH AND PO FLUIDS WITH NO NAUSEA. NO BLEEDING NOTED AT CATH SITE. PEDAL PULSES 2+. HOB FLAT, CALL LIGHT IN REACH. NO FAMILY AT BEDSIDE.
--- NOTE | 2019-05-09 13:44 | NUR ---
CALLED PT'S MOTHER, RENA, PER PT REQUEST AND INFORMED HER OF PT'S DISCHARGE TIME, STATES SHE WILL PICK PT UP AT DISCHARGE. PRESCRIPTIONS FOR PRAVACHOL, METOPROLOL ER AND PLAVIX CALLED TO [facility] PER PT REQUEST. FEMSTOP REMAINS INTACT WITH NO BLEEDING AT CATH SITE. NSR, RATE IS 70, BP IS 96/61. HOB IS FLAT.
--- NOTE | 2019-05-09 14:07 | MORECARE ---
CASE MANAGEMENT DISCHARGE SUMMARY PATIENT: NISHI SANDOVAL UNIT: [id number] ADM DATE: 05/08/19 AGE: 53 : 61 SEX: M ROOM/BED: D.2115 AUTHOR: RUT RENE PHYSICIAN: REFERRING PHYSICIAN: MATTHIEU FRANCO MD DATE OF SERVICE: 05/09/19 Discharge Plan Patient Name: NISHI SANDOVAL [facility] [facility] 1965 Planned Disposition: Home Anticipated Discharge Date: 05/09/19 Discharge Date: Expected LOS: 1 Initial Reviewer: [email or web address] Initial Review Date: 05/09/2019 Generated: 05/09/19 3:07 pm Patient Name: NISHI SANDOVAL Page 33487 at 1407 All edits/amendments must be made on the electronic document DICTATION DATE: 05/09/191406 COIL ASSEMBLER: ROGELIO 05/09/191406 RPT#: [id number] DC DATE: STATUS: ADM IN [facility] [address] [place] [address] END OF REPORT
--- NOTE | 2019-05-09 14:08 | NUR ---
PT ALERT, WATCHING TV, DENIES ANY C/O. NO BLEEDING AT CATH SITE, FEMSTOP PRESSURE WEANED BY 15, PEDAL PULSES PALPABLE.
--- NOTE | 2019-05-09 14:32 | NUR ---
FEMSTOP PRESSURE WEANED BY 15. PT IS SLEEPING, RESP WITH EASE ON ROOM AIR. NSR, RATE IS 69, BP 106/79. HOB FLAT, CALL LIGHT IN REACH.
--- NOTE | 2019-05-09 15:04 | NUR ---
FEMSTOP PRESSURE WEANED BY 20 WITH NO BLEEDING OR HEMATOMA NOTED. PEDAL PULSES PALPABLE. PT IS ALERT AND DENIES ANY C/O. VSS. HOB IS FLAT, CALL LIGHT IN REACH.
--- NOTE | 2019-05-09 15:23 | NUR ---
FEMSTOP PRESSURE WEANED BY 20 WITH NO BLEEDING OR HEMATOMA NOTED. PEDAL PULSES PALAPBLE. PT IS ALERT AND DENIES ANY C/O.
--- NOTE | 2019-05-09 15:47 | NUR ---
ALL REMAINING AIR WEANED FROM FEMSTOP WITH NO BLEEDING NOTED. PEDAL PULSES PALPABLE. HOB IS FLAT, VSS
--- NOTE | 2019-05-09 16:18 | NUR ---
DRESSING REMAINS CDI TO RIGHT GROIN, HOB ELEVATED 30 DEGREES. PEDAL PULSES PALPABLE. PT IS ALERT AND DENIES ANY C/O. TANK 100% OF SANDWICH TRAY.
--- NOTE | 2019-05-09 17:14 | NUR ---
1630 HOB FULLY ELEVATED, DRESSING REMAINS CDI. PEDAL PULSES PALPABLE. PT IS ALERT AND DENIES ANY C/O. 1645 IV DC;D WITH CATH INTACT. PT IS DRESSING FOR DISCHARGE. DRESSING REMAINS CDI RIGHT GROIN, AREA IS SOFT AND NONTENDER. PEDAL PULSES PALPABLE. PT DENIES ANY N/V DEFICIT TO RLE. 1655 DC INSTRUCTIONS REVIEWED WITH PT AND MOTHER WHO VERBALIZE UNDERSTANDING. PT AND MOTHER INSTRUCTED ON PT'S NEW MEDICATIONS AND MED COUNSELOR SHEETS PROVIDED. PT AND MOTHER VERBALIZE UNDERSTANDING TO RETIREMENT SPECIALIST MEDICATIONS CALLED TO [facility] AND TO START MEDICATIONS TOMORROW. PT ESCORTED TO PRIVATE AUTO VIA WC WITH MOTHER DRIVING HIM HOME. PT STATES HAS ALL PERSONAL BELONGINGS AT DISCHARGE- HAS LARGE BROWN BAG AND SMALL BLACK BAG, AND DISCHARGE INSTRUCTIONS. DENIES ANY C/O AT DISCHARGE.
--- NOTE | 2019-05-15 14:07 | OP ---
PATIENT NAME: NISHI SANDOVAL MEDICAL RECORD: [id number] :61 LOCATION:[facility] ADMISSION DATE:05/08/19 SURGEON: MATTHIEU FRANCO MD DATE OF OPERATION: 05/09/2019 PROCEDURES: 1. PTCA stent RCA, PDA for chronic total occlusion. 2. IFR RCA PLV. 3. Selective coronary angiography. INDICATION: Non-Q-wave myocardial infarction. PROCEDURE IN DETAIL: After informed consent was obtained and after detailed explanation of risks, benefits as well as alternative therapies, the patient elected to proceed with angiogram and angioplasty. The right femoral area was prepped and draped in normal sterile fashion. Right femoral artery was cannulated via modified Seldinger technique with placement of 6-German sheath. All catheters exchanged through this sheath. FINDINGS: The PLV has a questionable 70% to 80% stenosis; however, IFR was normal at 0.94. We then turned our attention to the chronic total occlusion of the PDA. We are able to traverse the first part of this chronic total occlusion, planted successfully with a 1.5 and 2.0 balloon stented successfully with a 2-0 stent; however, from reviewing the film, it was done yesterday. There are left to right collaterals to a larger part of the PDA, it appears that there is a second total occlusion. We were not able to traverse this. OVERALL IMPRESSION: Successful percutaneous transluminal coronary angioplasty stent of the RCA PDA. Chronic total occlusion going from 100% initial stenosis to 0% residual stenosis. There is a second total occlusion of the PDA, but it is fed via left to right collaterals. Hence, no further intervention is necessary. TRANSINT:[id number] Voice Confirmation ID: [id number] DOCUMENT ID: [id number] MATTHIEU FRANCO MD at 1407 CC: [id number] DICTATION DATE: 05/09/19 1237 CAFETERIA AIDE: 05/09/19 1331 DIS IN 05/09/19 [facility] [address] [id number]
--- NOTE | 2019-05-15 14:07 | OP ---
PATIENT NAME: NISHI SANDOVAL MEDICAL RECORD: [id number] :61 LOCATION:[facility] ADMISSION DATE:05/08/19 SURGEON: MATTHIEU FRANCO MD DATE OF OPERATION: 05/08/2019 PROCEDURES: 1. PTCA stent LAD. 2. PTCA stent left circumflex. 3. Left heart catheterization. 4. Selective coronary angiography. 5. Left ventriculogram. INDICATION: Non-Q-wave myocardial infarction and coronary artery disease. PROCEDURE IN DETAIL: After informed consent was obtained and after a detailed description of risks, benefits as well as alternative therapies, the patient elected to proceed with angiogram and angioplasty. The right radial area was prepped and draped in normal sterile fashion. Right radial artery was cannulated via modified Seldinger technique with placement of 6-Yoruba sheath. All catheters exchanged through this sheath. FINDINGS: The left ventriculogram was performed in standard 30-degree VAZQUEZ view, reveals good cardiac wall motion, ejection fraction estimated 60%. SELECTIVE CORONARY ANGIOGRAPHY: 1. Left main has no significant angiographic disease. 2. Left anterior descending has 95% stenosis in the proximal vessel. 3. Left circumflex has 95% stenosis in the proximal vessel. 4. Right coronary artery is very difficult to engage through the radial. It appears that the PDA has 99% to 100% stenosis. The distal PDA does fill via left to right collaterals. PTCA STENT OF THE LAD: The stent used 2.5 x 38 mm [place]. Result was 0% residual stenosis. PTCA STENT OF THE LEFT CIRCUMFLEX: The stent used 2.5 x 18 mm Jj. Result was 0% residual stenosis. OVERALL IMPRESSION: Successful PTCA stent of the LAD and circumflex, both going from 95% to 99% initial stenosis. PLAN: For PTCA stent of the RCA through a groin approach in the near future. TRANSINT:[id number] Voice Confirmation ID: [id number] DOCUMENT ID: [id number] MATTHIEU FRANCO MD at 1407 CC: [id number] DICTATION DATE: 05/09/19 1251 RN PARALEGAL: 05/09/19 1303 DIS IN 05/09/19 [place] [address]
--- NOTE | 2019-05-15 14:07 | DS ---
PATIENT:NISHI HERNANDEZ :61 MEDICAL RECORD: [id number] DISCHARGE SUMMARY ADMISSION DATE: 05/08/19 DISCHARGE DATE: 05/09/19 DIAGNOSES: 1. Non-Q-wave myocardial infarction. 2. Coronary artery disease. 3. PTCA and stent of LAD, left circumflex, and RCA this admission. 4. Hypertension. 5. Hyperlipidemia. HOSPITAL COURSE: Mr. Hernandez presents with a non-Q-wave myocardial infarction, found to have 3-vessel coronary artery disease, underwent successful PTCA and stent of all 3 vessels. Discharged home with the addition of aspirin, Plavix, Pravachol, metoprolol to his medical regimen. He will follow up with [facility] in 1 month. TRANSINT:[id number] Voice Confirmation ID: [id number] DOCUMENT ID: [id number] MATTHIEU FRANCO MD at 1407 CC: [id number] DICTATION DATE: 05/09/19 1238 MOLD MAKER HELPER: 05/10/19 0142 DIS IN 05/09/19 [id number] [place] [address]
== END 2019-05-09 16:55 | disposition home or self-care (01) | DRG 247 ==
LOC: D.ER 01:51 → D.M2 03:24 → D.CLR 05-09 15:34
PROVIDERS: Emergency Medicine; ADMIT Internal Medicine Interventional Cardiology; ATTEND Internal Medicine Interventional Cardiology
PROC: 4A023N7 Measurement of Cardiac Sampling and Pressure, Left Heart, Percutaneous Approach (ICD-10-PCS; 2019-05-08)
PROC: B2111ZZ Fluoroscopy of Multiple Coronary Arteries using Low Osmolar Contrast (ICD-10-PCS; 2019-05-08)
PROC: B2151ZZ Fluoroscopy of Left Heart using Low Osmolar Contrast (ICD-10-PCS; 2019-05-08)
PROC: 027135Z Dilation of Coronary Artery, Two Arteries with Two Drug-eluting Intraluminal Devices, Percutaneous Approach (ICD-10-PCS; principal; 2019-05-08 11:49)
PROC: 027034Z Dilation of Coronary Artery, One Artery with Drug-eluting Intraluminal Device, Percutaneous Approach (ICD-10-PCS; 2019-05-09)
PROC: 4A033BC Measurement of Arterial Pressure, Coronary, Percutaneous Approach (ICD-10-PCS; 2019-05-09)
DX: I21.4 Non-ST elevation (NSTEMI) myocardial infarction (principal); I25.10 Atherosclerotic heart disease of native coronary artery without angina pectoris; I10 Essential (primary) hypertension; E78.5 Hyperlipidemia, unspecified

== ENCOUNTER → 2019-09-16 17:10 | Outpatient (CLI) | payer MEDICAID ==
[2019-05-08 13:05] VITALS: BMI 27.3
[~2019-09-16 17:10] MED LIST: BAYER CHEWABLE81 MG; BAYER CHEWABLE81 MG PO; CYCLOBENZAPRINE10 MG PO; HYDROCODON-ACE1 EAC7 PO; MARINOL10 MG PO; OMEPRAZOLE20 M1 PO; PHENERGAN25 M1 PO; PHENERGAN25 MG RC; PLAVIX75 MG PO; PRAVACHOL20 MG PO; RANITIDINE HCL150 M1 PO; TOPROL XL50 MG PO; VITAMIN B-121000 MCG PO
[2019-09-16 17:55] LABS: CHOL - HDL RATIO 5.2 ratio (2.3-4.9); LDL-HDL RATIO 2.5 ratio (1.5-3.5)
== END | disposition home or self-care (01) ==
LOC: D.LABREF 17:10
PROVIDERS: ATTEND Internal Medicine Interventional Cardiology
DX: E78.5 Hyperlipidemia, unspecified (principal)

== ENCOUNTER 2019-10-04 15:47 | Emergency (ER) | payer MEDICAID ==
[~2019-10-04] VITALS: Ht 175.3 cm; Wt 90.9 kg
[2019-10-04 15:53] VITALS: Ht 175.3 cm; Wt 90.9 kg
[2019-10-04 16:33] LABS: BASOPHILS 0.4 % (0-2); EOSINOPHILS 2.1 % (0-7); HEMATOCRIT 47.9 % (42.0-54.0); HEMOGLOBIN 16.1 g/dL (13.5-17.5); IMMATURE GRANULOCYTES 0.2 % (0-5); LYMPHOCYTES 29.6 % (15-50); MCHC 33.6 g/dL (31.0-37.0); MCV 89.2 fL (80.0-100.0); MEAN PLATELET VOLUME 10.9 fL (7.4-10.4); MONOCYTES 5.8 % (2-11); NEUTROPHILS 61.9 % (40-80); PLATELET COUNT 286 10x3/uL (130-400); RBC 5.37 10x6/uL (4.20-6.10); RDW 14.3 % (11.5-14.5); WBC 9.1 10x3/uL (4.8-10.8)
[2019-10-04 16:49] LABS: CALC OSMOLALITY 279 mosm/kg (275-300); CALCIUM 9.9 mg/dL (8.5-10.1); CARBON DIOXIDE 24.7 mmol/L (21.0-32.0); CHLORIDE - SERUM 105 mmol/L (98-107); CREATININE - SERUM 1.2 mg/dL (0.6-1.3); GLUCOSE 108 mg/dL (74-106); SODIUM 139 mmol/L (136-145); UREA NITROGEN 16 mg/dL (7-18); eGFR NON AFRICAN AMERICAN 66 mL/min (90-120)
[2019-10-04 16:53] LABS: ALBUMIN 3.9 g/dL (3.4-5.0); ALKALINE PHOSPHATASE 107 U/L (30-120); ALT (SGPT) 69 U/L (10-68); AMYLASE - SERUM 55 U/L (25-115); BILIRUBIN - TOTAL 0.43 mg/dL (0.2-1.3); LIPASE 84 U/L (73-393)
[2019-10-04 16:54] LABS: TROPONIN-I < 0.017 ng/mL (0.000-0.060)
[2019-10-04 16:56] LABS: BILIRUBIN NEGATIVE (NEGATIVE); GLUCOSE NEGATIVE (NEGATIVE); KETONE NEGATIVE (NEGATIVE); NITRITE NEGATIVE (NEGATIVE); SPECIFIC GRAVITY 1.025 (1.005-1.020); UROBILINOGEN NORMAL (NORMAL)
[2019-10-04 18:43] VITALS: BP 132/100
[2019-10-04 19:25] LABS: CREATINE KINASE 159 UL (21-232)
[2019-10-04 19:27] LABS: TROPONIN-I 0.017 ng/mL (0.000-0.060)
[2019-10-04] MEDS ORDERED: MIRALAX17 GM PO (20:16)
== END 2019-10-04 21:04 | disposition home or self-care (01) ==
LOC: D.ER 15:47
PROVIDERS: Family Medicine
DX: K59.00 Constipation, unspecified (principal); I25.2 Old myocardial infarction; Z95.5 Presence of coronary angioplasty implant and graft; R07.9 Chest pain, unspecified